=== PATIENT | male | born 1985 | race African-American/Black ===

== ENCOUNTER 2016-08-25 17:50 | Emergency (ER) | payer MEDICAID | END 2016-08-25 18:44 | disposition home or self-care (01) | LOC: D.ER 17:50 | DX: S02.5XXA Fracture of tooth (traumatic), initial encounter for closed fracture (principal); X58.XXXA Exposure to other specified factors, initial encounter; Y93.89 Activity, other specified; Y92.89 Other specified places as the place of occurrence of the external cause ==